=== PATIENT | female | born 1995 | race Caucasian/White ===

== ENCOUNTER 2017-01-04 14:57 | Emergency (ER) | payer OTHER ==
[2017-01-04 15:14] VITALS: BP 113/80
== END 2017-01-04 16:55 | disposition home or self-care (01) ==
LOC: ED 14:57
DX: S30.23XA Contusion of vagina and vulva, initial encounter (principal); X58.XXXA Exposure to other specified factors, initial encounter; Y93.89 Activity, other specified; Y92.89 Other specified places as the place of occurrence of the external cause; Y99.8 Other external cause status

== ENCOUNTER 2017-08-02 18:47 | Emergency (ER) | payer OTHER ==
[~2017-08-02] VITALS: Ht 162.6 cm; Wt 64.4 kg
[2017-08-02 19:19] VITALS: BP 105/81
== END 2017-08-02 21:23 | disposition left against medical advice (07) ==
LOC: ED 18:47
DX: Z53.21 Procedure and treatment not carried out due to patient leaving prior to being seen by health care provider (principal)

== ENCOUNTER 2018-06-27 09:48 | Emergency (ER) | payer MEDICAID ==
[~2018-06-27] VITALS: Ht 162.6 cm; Wt 67.1 kg
[2018-06-27 09:53] VITALS: Ht 162.6 cm; Wt 67.1 kg
[2018-06-27 13:59] VITALS: BP 117/68
== END 2018-06-27 13:59 | disposition home or self-care (01) ==
LOC: ED 09:48
DX: R51 Headache (principal); H52.10 Myopia, unspecified eye
CPT/HCPCS: J1885

== ENCOUNTER 2019-07-20 17:26 | Emergency (ER) | payer OTHER ==
[~2019-07-20] VITALS: Ht 162.6 cm; Wt 66.2 kg
[2019-07-20 17:40] VITALS: Ht 162.6 cm; Wt 66.2 kg
[2019-07-20 19:44] LABS: BASOPHIL % 0.7 % (0-2); PLATELET COUNT 209 x10^3mcL (130-400); RED CELL DISTRIBUTION WIDTH 13.1 % (11.5-14.5)
[2019-07-20 19:57] LABS: CALCIUM 8.3 mg/dL (8.5-10.1); CARBON DIOXIDE 21.6 mmol/L (21-32); CHLORIDE SERUM 106 mmol/L (98-107); CREATININE SERUM 0.5 mg/dL (0.6-1.0); GFR1 > 60 mL/min; GLUCOSE SERUM 82 mg/dL (74-106); POTASSIUM SERUM 3.6 mmol/L (3.5-5.1); SODIUM SERUM 138 mmol/L (136-145)
[2019-07-20 20:02] LABS: ALKALINE PHOSPHATASE 55 U/L (46-116); ALT/SGPT 13 U/L (14-59); AST/SGOT 10 U/L (15-37); TOTAL PROTEIN, SERUM 7.2 g/dL (6.4-8.2)
[2019-07-20 20:03] LABS: ALBUMIN 3.2 g/dL (3.4-5.0)
[2019-07-20 21:31] VITALS: BP 104/69
== END 2019-07-20 21:31 | disposition home or self-care (01) ==
LOC: ED 17:26
PROVIDERS: Emergency Medicine
DX: O26.891 Other specified pregnancy related conditions, first trimester (principal); R10.9 Unspecified abdominal pain; Z3A.21 21 weeks gestation of pregnancy
CPT/HCPCS: 36415; J7030

== ENCOUNTER 2019-08-02 20:58 | Emergency (ER) | payer OTHER ==
[~2019-08-02] VITALS: Ht 162.6 cm; Wt 66.2 kg
[2019-08-02 21:01] VITALS: Ht 162.6 cm; Wt 66.2 kg
[2019-08-02 21:57] LABS: BASOPHIL % 0.3 % (0-2); PLATELET COUNT 212 x10^3mcL (130-400); RED CELL DISTRIBUTION WIDTH 12.7 % (11.5-14.5)
[2019-08-02 21:59] LABS: CALCIUM 8.9 mg/dL (8.5-10.1); CHLORIDE SERUM 102 mmol/L (98-107); CREATININE SERUM 0.7 mg/dL (0.6-1.0); GFR1 > 60 mL/min; GLUCOSE SERUM 102 mg/dL (74-106); POTASSIUM SERUM 3.8 mmol/L (3.5-5.1); SODIUM SERUM 135 mmol/L (136-145)
[2019-08-02 22:05] LABS: ALKALINE PHOSPHATASE 73 U/L (46-116); ALT/SGPT 16 U/L (14-59); AST/SGOT 9 U/L (15-37); BILIRUBIN TOTAL 0.52 mg/dL (0.20-1.00); TOTAL PROTEIN, SERUM 7.3 g/dL (6.4-8.2)
[2019-08-02 22:07] LABS: ALBUMIN 2.9 g/dL (3.4-5.0)
[2019-08-02 23:18] VITALS: BP 110/63
== END 2019-08-02 23:18 | disposition home or self-care (01) ==
LOC: ED 20:58
PROVIDERS: Emergency Medicine
DX: O26.892 Other specified pregnancy related conditions, second trimester (principal); M94.0 Chondrocostal junction syndrome [Tietze]; Z3A.21 21 weeks gestation of pregnancy
CPT/HCPCS: 36415